=== PATIENT | male | born 1955 | race Caucasian/White ===

== ENCOUNTER 2022-08-18 18:26 | Emergency (ER) | payer MEDICARE ==
[~2022-08-18] VITALS: Ht 172.7 cm; Wt 66.7 kg
[2022-08-18] VITALS (8 sets, daily range): BP systolic 135–180; BP diastolic 72–104
[2022-08-18 19:09] LABS: BASO% 0.9 % (0-3); EOS% 7.4 % (0-8); HEMATOCRIT 43.5 % (39.0-50.0); HEMOGLOBIN 14.3 g/dl (14.0-18.0); LYMPH% 35.2 % (15-41); MEAN CELL VOLUME 94.6 fL CALC (80.0-100.0); MEAN CORPUSCULAR HGB 31.1 pG CALC (26.0-32.0); MEAN CORPUSCULAR HGB CONC 32.9 g/dL CAL (32.0-36.0); MONO% 9.4 % (2-13); NEUT# 2.61 thou/uL (1.82-7.42); NEUT% 47.1 % (42-76); RED BLOOD COUNT 4.6 mill/uL (4.70-6.10); RED CELL DISTRI WIDTH 12.2 % (11.5-15.5)
[2022-08-18 19:23] LABS: ALBUMIN 4.1 g/dL (3.2-5.0); ALKALINE PHOSPHATASE 104 u/l (38-126); ANION GAP 12 (6-22 (CALC)); BILIRUBIN, TOTAL 0.3 mg/dL (0.2-1.3); BUN 13 mg/dL (8-23); BUN/CREATININE RATIO 18 (12-20 (CALC)); CARBON DIOXIDE 27 mmol/l (22-30); CHLORIDE 106 mmol/l (95-108); CREATININE 0.7 mg/dL (0.7-1.3); GFR FOR AFR.AMER. > 60 ML/MIN (>=60 (CALC)); GFR OTHER RACES > 60 ML/MIN (>=60 (CALC)); SGOT/AST 27 u/l (19-48); SODIUM 140 mmol/l (137-146); TOTAL PROTEIN 7.2 g/dL (6.3-8.2)
[2022-08-18] MEDS ORDERED: ULTRAM50 MG PO (21:26)
== END 2022-08-18 21:47 | disposition home or self-care (01) ==
LOC: ED 18:26
PROVIDERS: Family Medicine
DX: R55 Syncope and collapse (principal); R51.9 Headache, unspecified; I10 Essential (primary) hypertension; Z20.822 Contact with and (suspected) exposure to COVID-19